=== PATIENT | female | born 1990 | race Caucasian/White ===

== ENCOUNTER 2018-04-14 18:06 | Emergency (ER) | payer BC, OTHER ==
[2018-04-14 18:17] VITALS: RESP 18
[2018-04-14] MEDS ORDERED: ACETAMINOPHEN TAB 500 MG TAB PO STA (18:29)
--- NOTE | 2018-04-14 18:38 | ED ---
General Adult HPI - General Chief complaint: Extremity Injury, Lower Stated complaint: left foot pain/swelling Time Seen by Provider: 04/14/18 18:22 Source: patient, RN notes reviewed Mode of arrival: ambulatory Limitations: no limitations - History of Present Illness Initial comments: Patient is a 27-year-old female who presents the emergency department with complaints of left foot pain since yesterday when she thinks she twisted it while walking. She reports that she injured it 6 months ago and broke it 10 years ago. She has been taking ibuprofen for pain. Patient denies any recent fever, chills, shortness of breath, chest pain, back pain, abdominal pain, nausea or vomiting, numbness or tingling, headaches or visual changes, or any other complaints. - Related Data Previous Rx's Medication Instructions Recorded Docusate [Colace] 100 mg PO BID #30 capsule 05/12/14 Hydrocodone/Acetaminophen [[place] 1 each PO Q4HR PRN #40 tab 05/12/14 5-325] Allergies Allergy/AdvReac Type Severity Reaction Status Date / Time Sulfa (Sulfonamide Allergy Unknown Verified 04/14/18 18:12 Antibiotics) Childhood Review of Systems ROS Statement: Those systems with pertinent positive or pertinent negative responses have been documented in the HPI. ROS Other: All systems not noted in ROS Statement are negative. Past Medical History Additional Past Medical History / Comment(s): UMBILICAL HERNIA History of Any Multi-Drug Resistant Organisms: None Reported Past Surgical History: Hernia Repair Past Anesthesia/Blood Transfusion Reactions: No Reported Reaction Past Psychological History: No Psychological Hx Reported Smoking Status: Never smoker Past Alcohol Use History: Occasional Past Drug Use History: None Reported General Exam Limitations: no limitations General appearance: alert, in no apparent distress Head exam: Present: atraumatic, normocephalic Eye exam: Present: normal appearance Respiratory exam: Present: normal lung sounds bilaterally Cardiovascular Exam: Present: regular rate, normal rhythm Extremities exam: Present: tenderness (Left foot.), normal capillary refill, other (DP and PT pulses palpable and strong bilaterally. Mild edema of left foot. Slight limitation of left foot inversion/eversion.) Neurological exam: Present: alert, oriented X3 Psychiatric exam: Present: normal affect, normal mood Skin exam: Present: intact, normal color Course Vital Signs 04/14/18 18:12 Temperature 97.7 F Pulse Rate 78 Respiratory 18 Rate Blood Pressure 134/84 O2 Sat by Pulse 100 Oximetry Medical Decision Making - Medical Decision Making Tylenol given for pain. Left foot X-ray is negative for fracture or dislocation. This is likely an ankle sprain. Patient does not want a splint. Clarence wrap was used for the ankle. Case discussed in detail with attending physician Dr. Hanna. Disposition Clinical Impression: Left ankle sprain Disposition: HOME SELF-CARE Condition: Good Instructions: Ankle Sprain (ED) Additional Instructions: Follow-up with PCP in 2 days. Rest, ice, compression and elevation for the injured ankle as discussed. Return to emergency department if symptoms worsen or any other concerns. Is patient prescribed a controlled substance at d/c from ED?: No Referrals: Chase Swann DO [Primary Care Provider] - 1-2 days Time of Disposition: 19:26
--- NOTE | 2018-04-14 19:10 | XR ---
EXAMINATION TYPE: XR foot complete LT DATE OF EXAM: 04/14/2018 COMPARISON: NONE HISTORY: Foot pain TECHNIQUE: 3 views FINDINGS: Metatarsals are intact. I see no fracture nor dislocation. There are no erosions. Joint spa andrés are normal. IMPRESSION: Negative left foot exam.
[2018-04-14 19:36] VITALS: BP 140/80; PULSE 88; TEMP 97.3
== END 2018-04-14 19:36 | disposition home or self-care (01) ==
LOC: EC 18:06
DX: S93.402A Sprain of unspecified ligament of left ankle, initial encounter (principal); Z88.2 Allergy status to sulfonamides; X50.1XXA Overexertion from prolonged static or awkward postures, initial encounter; Y93.01 Activity, walking, marching and hiking
CPT/HCPCS: 99283

== ENCOUNTER 2020-01-13 15:14 | Inpatient (IN) | payer BC ==
[2020-01-13 16:07] LABS: Creatinine,Urine Random 28.1 mg/dL
[2020-01-13 16:08] LABS: Protein/Creatinine Ratio,Urine 0.486
[2020-01-13 16:23] LABS: Appearance,Urine Clear (Clear); Bilirubin,Urine Negative (Negative); Blood,Urine Negative (Negative); Color,Urine Light Yellow; Glucose,Urine (UA) Negative (Negative); Ketones,Urine Negative (Negative); Leukocyte Esterase,Urine Negative (Negative); Nitrite,Urine Negative (Negative); PH, Urine 6.5 (5.0-8.0); Protein,Urine Negative (Negative); Specific Gravity,Urine 1.005 (1.001-1.035); Urobilinogen,Urine <2.0 mg/dL (<2.0)
[2020-01-13 16:52] LABS: Basophils # (A) 0.1 k/uL (0-0.2); Basophils % (A) 0 %; Eosinophils # (A) 0.4 k/uL (0-0.7); Eosinophils % (A) 3 %; HCT 34.9 % (34.0-46.0); HGB 11.8 gm/dL (11.4-16.0); Lymphocytes # (A) 2.3 k/uL (1.0-4.8); Lymphocytes % (A) 19 %; MCH 32.3 pg (25.0-35.0); MCHC 33.7 g/dL (31.0-37.0); MCV 95.9 fL (80.0-100.0); Monocytes # (A) 0.7 k/uL (0-1.0); Monocytes % (A) 5 %; Neutrophils # (A) 8.7 k/uL (1.3-7.7); Neutrophils % (A) 70 %; Platelet Count 164 k/uL (150-450); RBC 3.64 m/uL (3.80-5.40); RDW 13.7 % (11.5-15.5); WBC 12.3 k/uL (3.8-10.6)
[2020-01-13 16:55] LABS: ALT 17 U/L (4-34); AST 29 U/L (14-36); African American GFR (CKD) >90 (>60 ml/min/1.73 sqM); Blood Urea Nitrogen 10 mg/dL (7-17); LDH 420 U/L (313-618); Magnesium 1.7 mg/dL (1.6-2.3); Non-African American GFR(CKD) >90 (>60 ml/min/1.73 sqM); Uric Acid 5.6 mg/dL (3.7-7.4)
[2020-01-13 17:25] LABS: INR 0.9 (<1.2); Partial Thromboplastin Time 23.3 sec (22.0-30.0); Prothrombin Time 9.3 sec (9.0-12.0)
[2020-01-13] MEDS ORDERED: DINOPROSTONE 10 MG INSERT.ER VAGINAL ONE (18:38)
[2020-01-13] MEDS ORDERED: LABETALOL 200 MG TAB PO STA (18:38)
[2020-01-14] MEDS ORDERED: METHYLERGONOVINE 0.2 MG/ML 1 ML AMP IM PRN (06:15)
[2020-01-14] MEDS ORDERED: OXYTOCIN 10 UNIT/ML 1 ML VIAL IM PRN (06:15)
[2020-01-14] MEDS ORDERED: OXYTOCIN 30 UNITS/500 ML NS 30 UNIT in SALINE 1 500ML.BAG IV SCH (06:15)
[2020-01-14] MEDS ORDERED: TERBUTALINE 1 MG/ML VIAL SQ PRN (06:15)
[2020-01-14] MEDS ORDERED: CARBOPROST TROMETHAMINE 250 MCG/ML 1 ML AMP IM PRN (06:15)
[2020-01-14] MEDS ORDERED: LIDOCAINE 0.5% (PF) 5 MG/ML (50 ML SDV) SQ PRN (06:15)
[2020-01-14] MEDS: LACTATED RINGERS 1,000 ML IV SCH ×2 (06:21→11:51)
[2020-01-14] MEDS: LABETALOL 200 MG TAB PO SCH ×2 (08:02→18:45)
--- NOTE | 2020-01-14 10:35 | P.HPOB ---
History of Present Illness H&P Date: 01/13/20 Chief Complaint: pre-eclampsia at term 29-year-old presents at 38 weeks and 6 days after having her blood pressures in the office. Her blood pressure here went up to 160s over 80s. She did have a mild headache but that resolved. Preeclamptic labs were run and her PC ratio is 0.4. With the blood pressures on the PC ratio, she was diagnosed with preeclampsia and kept for induction of labor. Her cervix is closed, thick, -2 station. She is not annabel. heart tones 135 with moderate variability and reactive. Cervidil will be placed and then amniotomy and Pitocin the morning. Full discussion was had with the patient and the father of the baby. They express understanding of why she is to be delivered and the seriousness of the situation. Review of Systems All systems: negative Constitutional: Denies chills, Denies fever Eyes: denies blurred vision, denies pain Ears, nose, mouth and throat: Denies headache, Denies sore throat Cardiovascular: Denies chest pain, Denies shortness of breath Respiratory: Denies cough Gastrointestinal: Denies abdominal pain, Denies diarrhea, Denies nausea, Denies vomiting Genitourinary: Denies dysuria, Denies hematuria Musculoskeletal: Denies myalgias Integumentary: Denies pruritus, Denies rash Neurological: Denies numbness, Denies weakness Psychiatric: Denies anxiety, Denies depression Endocrine: Denies fatigue, Denies weight change Past Medical History Past Medical History: No Reported History Additional Past Medical History / Comment(s): UMBILICAL HERNIA. Obstetric history: This is her first and she's had care with Dr. Martin since 8 weeks gestation. Normal anatomy ultrasound at 18 weeks. Blood type is O-, rubella immune, RPR nonreactive, hepatitis B negative, HIV negative. Rogaine was given 10/26/2019. History of Any Multi-Drug Resistant Organisms: None Reported Past Surgical History: Hernia Repair Past Anesthesia/Blood Transfusion Reactions: No Reported Reaction Past Psychological History: No Psychological Hx Reported Smoking Status: Never smoker Past Alcohol Use History: Occasional Past Drug Use History: None Reported - Past Family History Father Family Medical History: No Reported History Medications and Allergies Allergies Allergy/AdvReac Type Severity Reaction Status Date / Time Sulfa (Sulfonamide Allergy Unknown Verified 01/13/20 15:22 Antibiotics) Childhood Exam Osteopathic Statement: *. No significant issues noted on an osteopathic structural exam other than those noted in the History and Physical/Consult. Vital Signs Temp Pulse Resp BP Pulse Ox 01/14/20 03:00 16 135/70 01/14/20 02:00 72 125/64 01/13/20 23:00 98.1 F 76 16 130/62 01/13/20 21:00 78 137/71 01/13/20 20:00 71 128/73 01/13/20 19:00 70 16 178/88 01/13/20 15:35 98.0 F 77 16 191/88 98 Intake and Output 01/13/20 01/14/20 01/14/20 22:59 06:59 14:59 Other: # Voids 3 1 Weight 66.224 kg Heart: Regular rate and rhythm Lungs: Clear to auscultation bilaterally Abdomen: Soft, nontender Extremities: Negative Homans sign 3+ out of 4 DTR Results Result Diagrams: 01/13/20 16:33 01/13/20 16:33 Abnormal Lab Results - Last 24 Hours (Table) 01/13/20 01/13/20 Range/Units 15:59 16:33 WBC 12.3 H (3.8-10.6) k/uL RBC 3.64 L (3.80-5.40) m/uL Neutrophils # 8.7 H (1.3-7.7) k/uL U Random Total Protein 14 H (<12) mg/dL Assessment and Plan (1) Preeclampsia Current Visit: Yes Status: Acute Code(s): O14.90 - UNSPECIFIED PRE- ECLAMPSIA, UNSPECIFIED TRIMESTER SNOMED Code(s): 771424159 Plan: 1. 2-stage induction of labor with Cervidil tonight and then amniotomy and Pitocin in the morning. 2. Monitor blood pressures closely. 3. Anticipate normal vaginal delivery
[2020-01-14] MEDS ORDERED: ROPIVACAINE 5MG/ML 20ML VIAL ONE (11:28)
[2020-01-14] MEDS ORDERED: SODIUM CHLORIDE 0.9% 100 ML BAG ONE (11:28)
[2020-01-14] MEDS ORDERED: fentaNYL (PF) 50 MCG/ML 5 ML AMP ONE (11:28)
[2020-01-14] MEDS ORDERED: ACETAMINOPHEN TAB 325 MG TAB PO STA (18:39)
--- NOTE | 2020-01-14 23:32 | P.PROBDLV ---
Vaginal Delivery Note - . Vaginal Delivery Note: 29-year-old presents at 38 weeks and 6 days after having her blood pressures in the office. Her blood pressure here went up to 160s over 80s. She did have a mild headache but that resolved. Preeclamptic labs were run and her PC ratio is 0.4. With the blood pressures on the PC ratio, she was diagnosed with preeclampsia and kept for induction of labor. Her cervix is closed, thick, -2 station. She is not annabel. heart tones 135 with moderate jh iability and reactive. Cervidil was placed and in the morning her cervix was 1 cm dilated, 70% effaced, -2 station. Amniotomy was performed at 8:46 AM clear fluid noted. Pitocin had also been started. She progressed slowly throughout the day and did get an epidural when she was uncomfortable. Her cervix was completely dilated at 2211. She pushed, and delivered a viable male over intact perineum under epidural anesthesia at 2312. Head delivered ARIADNA, anterior shoulder delivered gentle downward guidance of a posterior shoulder and rest of body. Nose and mouth bulb suctioned, cord clamped and cut, infant placed mother's abdomen. Apgars 9, 9, weight 6 lbs. 3 oz. Placenta delivered spontaneously, intact with three-vessel cord at 2315. Vagina, cervix, and perineum were inspected. First-degree midline and a right labial laceration were repaired with 3-0 Vicryl. Estimated blood loss 100 mL. Mother and baby in stable condition.
[2020-01-14] MEDS ORDERED: Rhogam IMMUNE GLOBULIN 1,500 UNIT/1 ML IM ONE (23:33)
[2020-01-14] MEDS ORDERED: diphenhydrAMINE 25 MG CAP PO PRN (23:33)
[2020-01-14] MEDS ORDERED: HYDROCORTISONE 2.5% RECTAL CREAM 30 GM TUBE RECTAL PRN (23:33)
[2020-01-14] MEDS ORDERED: diphenhydrAMINE 50 MG/ML 1 ML VIAL IVP PRN ×2 (23:33)
[2020-01-14] MEDS ORDERED: ACETAMINOPHEN TAB 325 MG TAB PO PRN (23:33)
[2020-01-14] MEDS ORDERED: SIMETHICONE 80 MG CHEWABLE PO PRN (23:33)
[2020-01-14] MEDS ORDERED: LANOLIN CREAM 5 GM TUBE TOPICAL PRN (23:33)
[2020-01-14] MEDS ORDERED: ZOLPIDEM 5 MG TAB PO PRN (23:33)
[2020-01-14] MEDS ORDERED: BENZOCAINE/MENTHOL SPRAY 1 GM/SPRAY AEROSOL TOPICAL PRN (23:33)
[2020-01-14] MEDS ORDERED: diphenhydrAMINE 50 MG CAP PO PRN (23:33)
[2020-01-14] MEDS ORDERED: OXYTOCIN 20 UNITS/1000 ML NS 1,000 ML IV SCH (23:45)
[2020-01-15] MEDS: LACTATED RINGERS 1,000 ML IV SCH ×3 (00:48→20:05)
[2020-01-15] MEDS ORDERED: MAGNESIUM SULFATE-WATER PMX 4 GM in WATER FOR INJECTION 1 100ML.BAG IVPB ONE (02:10)
[2020-01-15] MEDS ORDERED: CALCIUM GLUCONATE 1 GM/10 ML VIAL IV PRN (02:10)
[2020-01-15] MEDS: IBUPROFEN 600 MG TAB PO PRN ×2 (02:24→20:06)
[2020-01-15] MEDS: MAGNESIUM SULFATE-WATER PMX 20 GM in WATER FOR INJECTION 1 500ML.BAG IV SCH ×3 (02:45→21:57)
--- NOTE | 2020-01-15 07:07 | P.PNOBGVD ---
Subjective - Subjective Principal diagnosis: Status post normal vaginal delivery day #1, preeclampsia Interval history: Patient seen and examined day #1. After her recovery was done from her delivery she was placed on magnesium sulfate for seizure prophylaxis. She denies headache, vision changes, nausea, vomiting, chest pain, shortness of breath or any calf pain. Patient reports: Reports appetite normal, Reports voiding normally, Reports pain well controlled, Reports ambulating normally [place]: doing well Objective - Latest Vital Signs Latest vital signs: Vital Signs Temp Pulse Resp BP 01/15/20 06:30 97.1 F L 96 16 148/63 01/15/20 05:30 97.3 F L 89 16 136/78 01/15/20 04:30 98.5 F 78 14 132/77 01/15/20 03:30 97.1 F L 89 16 154/75 01/15/20 03:15 97.7 F 71 16 157/74 01/15/20 02:59 97.5 F L 87 16 127/77 01/15/20 02:45 97.2 F L 88 16 134/77 01/15/20 02:28 96.8 F L 71 16 169/86 01/15/20 01:30 98.1 F 62 16 175/83 01/15/20 01:00 60 16 174/91 01/15/20 00:30 66 16 167/90 01/15/20 00:15 66 16 150/72 01/15/20 00:00 68 16 156/80 01/14/20 23:45 78 16 152/78 01/14/20 23:30 97.2 F L 96 16 148/70 Intake and Output 01/14/20 01/15/20 01/15/20 22:59 06:59 14:59 Intake Total 200 Output Total 1100 600 Balance -1100 -400 Intake: Oral 200 Output: Urine 1100 500 Straight 900 Estimated Blood Loss 100 - Exam Lungs: bilateral: normal Chest: Normal S1, Normal S2 Extremities: Present: normal, other (2+/4 DTR) Abdomen: Present: normal appearance, soft Uterus: Present: normal, firm - Labs Labs: Abnormal Lab Results - Last 24 Hours (Table) 01/15/20 Range/Units 02:44 Magnesium 5.6 H* (1.6-2.3) mg/dL Assessment and Plan (1) Preeclampsia Current Visit: Yes Status: Acute Code(s): O14.90 - UNSPECIFIED PRE- ECLAMPSIA, UNSPECIFIED TRIMESTER SNOMED Code(s): 141933932 (2) Normal vaginal delivery Current Visit: Yes Status: Acute Code(s): O80 - ENCOUNTER FOR FULL-TERM UNCOMPLICATED DELIVERY SNOMED Code(s): 64116149 Plan: 1. Continue magnesium sulfate until 24 hours after delivery. 2. Will give oral labetalol if necessary 3. Monitor closely 4. care
[2020-01-15 07:11] LABS: Basophils % (A) 0 %; Eosinophils % (A) 0 %; Lymphocytes # (A) 1.4 k/uL (1.0-4.8); Lymphocytes % (A) 6 %; MCH 32.1 pg (25.0-35.0); MCHC 33.4 g/dL (31.0-37.0); Monocytes # (A) 1.2 k/uL (0-1.0); Monocytes % (A) 5 %; Neutrophils # (A) 21.6 k/uL (1.3-7.7); Neutrophils % (A) 88 %; Platelet Count 167 k/uL (150-450); RBC 3.44 m/uL (3.80-5.40); RDW 14.1 % (11.5-15.5); WBC 24.4 k/uL (3.8-10.6)
[2020-01-15] MEDS: LABETALOL 200 MG TAB PO SCH ×2 (09:05→20:06)
[2020-01-15] MEDS: SENNOSIDES-DOCUSATE SODIUM 1 EACH TAB PO SCH ×2 (10:08→20:06)
--- NOTE | 2020-01-16 06:06 | P.PNOBGVD ---
Subjective - Subjective Patient reports: Reports appetite normal, Reports voiding normally, Reports pain well controlled, Reports ambulating normally [place]: doing well Objective - Latest Vital Signs Latest vital signs: Vital Signs Temp Pulse Resp BP Pulse Ox 01/16/20 04:00 97.0 F L 69 16 110/63 01/16/20 02:00 97.8 F 71 18 129/80 01/16/20 01:00 96.8 F L 73 16 120/56 01/16/20 00:00 97.9 F 78 16 129/71 01/15/20 23:00 74 16 116/68 01/15/20 22:00 98.3 F 82 18 131/74 01/15/20 21:00 98.3 F 86 16 148/94 01/15/20 20:00 99.0 F 86 16 147/89 01/15/20 19:00 98.9 F 86 16 149/95 01/15/20 18:00 97.6 F 83 16 146/88 98 01/15/20 17:00 98.7 F 86 16 121/75 96 01/15/20 15:59 98.0 F 87 18 130/67 97 01/15/20 15:00 98.1 F 82 16 143/78 97 01/15/20 14:00 98.4 F 84 18 132/76 98 01/15/20 13:00 98.0 F 78 16 136/84 97 01/15/20 12:00 97.7 F 79 18 140/79 01/15/20 11:00 85 18 137/88 01/15/20 10:00 97.9 F 93 18 130/77 01/15/20 09:00 98.0 F 84 18 124/72 97 01/15/20 08:00 82 18 134/81 01/15/20 07:30 97.5 F L 85 18 141/79 01/15/20 06:30 97.1 F L 96 16 148/63 Intake and Output 01/15/20 01/15/20 01/16/20 14:59 22:59 06:59 Intake Total 6835.984 8819.167 900 Output Total 1550 1900 1000 Balance 325.833 -415.833 -100 Intake: Intake, IV Titration 8470.385 8131.167 300 Amount Lactated Ringers 1,000 ml 400 400 150 @ 50 mls/hr IV .Q20H [facility] Rx#:[id number] Magnesium Sulfate-Water 475.833 484.167 Pmx 20 gm In Water For Injection 1 500ml.bag @ 2 GM/HR 50 mls/hr IV .Q10H [facility] Rx#:[id number] Magnesium Sulfate-Water 400 400 150 Pmx 4 gm In Water For Injection 1 100ml.bag @ 300 mls/hr IVPB ONCE ONE Rx#:[id number] Oral 600 200 600 Output: Urine 1550 1900 1000 Other: # Voids 1 1 - Exam Lungs: bilateral: normal Chest: Normal S1, Normal S2 Extremities: Present: normal Abdomen: Present: normal appearance, soft Uterus: Present: normal, firm - Labs Labs: Abnormal Lab Results - Last 24 Hours (Table) 01/15/20 Range/Units 06:45 WBC 24.4 H (3.8-10.6) k/uL RBC 3.44 L (3.80-5.40) m/uL Hgb 11.0 L (11.4-16.0) gm/dL Hct 33.0 L (34.0-46.0) % Neutrophils # 21.6 H (1.3-7.7) k/uL Monocytes # 1.2 H (0-1.0) k/uL Assessment and Plan Assessment: Patient is resting today without new complaints. Magnesium was discontinued at approximately 2:00 this morning. Blood pressures remain good on oral labetalol. Plan today is to continue routine care and also continue observation for hypertensive issues. If she continues to well we discussed possible discharge home tomorrow. (1) Normal vaginal delivery Current Visit: Yes Status: Acute Code(s): O80 - ENCOUNTER FOR FULL-TERM UNCOMPLICATED DELIVERY SNOMED Code(s): 23181581 (2) Preeclampsia Current Visit: Yes Status: Acute Code(s): O14.90 - UNSPECIFIED PRE- ECLAMPSIA, UNSPECIFIED TRIMESTER SNOMED Code(s): 628875205
--- NOTE | 2020-01-16 07:48 | P.MSEPDOC ---
Presenting Problems - Arrival Data Date of Arrival on Unit: 01/13/20 Time of Arrival on Unit: 15:10 Mode of Transport: Ambulatory - Complaint OB-Reason for Admission/Chief Complaint: PIH Medical History - Information : 1 Para: 0 Number of Living Children: 0 - Gestational Age Gestational Age by JONELLE (wks/days): 38 Weeks and 6 Days Review of Systems - Review of Systems Constitutional: No problems Breast: No problems ENT: No problems Cardiovascular: No problems Respiratory: No problems Gastrointestinal: No problems Genitourinary: No problems Musculoskeletal: No problems Neurological: No problems Skin: No problems Vital Signs - Temperature Temperature: 97.7 F Temperature Source: Oral - Pulse Right Sitting Brachial Pulse Rate: 71 Pulse Assessment Method: Automatic Cuff - Respirations Respiratory Rate: 14 Oxygen Delivery Method: Room Air O2 Sat by Pulse Oximetry: 97 - Blood Pressure Right Arm Sitting Blood Pressure: 132/74 Blood Pressure Mean: 93 Blood Pressure Source: Automatic Cuff Medical Screen Scoring (Pre) - Cervical Exam Dilation: 0 cm = 0 Membranes: Intact - Uterine Contractions Frequency: N/A Duration: N/A Intensity: N/A - Maternal Vital Signs Maternal Temperature: N/A Maternal Blood Pressure: Systolic >139 = 2 Signs of Preeclampsia: Headache = 1 Maternal Respirations: N/A - Maternal Trauma Maternal Trauma: N/A - Assessment - Baby A Baseline FHR: 140 Heart Rate - NICHD Category: Category I (Normal) = 0 NST: Reactive Position: N/A Station: N/A - Total Score - Baby A Total Score - Baby A: 3 - Total Score - Baby B Total Score - Baby B: 3 - Total Score - Baby C Total Score - Baby C: 3 - Level of Risk - Baby A Level of Risk - Baby A: Low (0-5) - Level of Risk - Baby B Level of Risk - Baby B: Low (0-5) - Level of Risk - Baby C Level of Risk - Baby C: Low (0-5) Physician Notification (Pre) - Physician Notified Physician/Practitioner Notifed:: Dr. Underwood New Order Received: Yes - Notification Comment Comment: Called Dr. Underwood to give report on blood pressure and patient's symptoms on arrival blood pressure elevated 149/95 and patient experiencing intermittent blurred vision at this time. Denies other symtoms, reflexes 2+, clonus absent, denies headache. Physician states to give evening dose of labetolol now since morning dose was held. Magnesium to be discontinued at 0225 per physician and at that point okay to perform vitals every 2 hours until morning or until Dr. Martin assesses patient in the am. Call physician with further needs. Disposition - Disposition OB Disposition: Admit, LDRP Suite I agree with the RN Medical Screening Exam: Yes Risk & Benefit of care provided described in d/c instruction: Yes Diagnosis: UNSPECIFIED PRE-ECLAMPSIA, THIRD TRIMESTER
[2020-01-16] MEDS: LABETALOL 200 MG TAB PO SCH (08:56)
[2020-01-16] MEDS: SENNOSIDES-DOCUSATE SODIUM 1 EACH TAB PO SCH ×2 (09:46→21:22)
[2020-01-16] MEDS: IBUPROFEN 600 MG TAB PO PRN (12:50)
--- NOTE | 2020-01-16 18:36 | P.PN ---
Progress Note - Text Progress Note Date: 01/16/20 Patient is seen again and evaluated. She's had some elevated blood pressures throughout the day occasionally diastolics over 90 and systolics over 150. Her magnesium has been discontinued and she actually states that she is feeling much better and her headache has gone away. She's currently on labetalol 200 mg by mouth twice a day. I plan to increase her labetalol to 300 mg twice a day. Going to repeat a CBC tomorrow because her white count was elevated today. She understands that if her blood pressures continue to be a problem she may need to be continued in-house observation for blood pressure management.
[2020-01-16] MEDS: LABETALOL 100 MG TAB PO SCH (21:01)
[2020-01-17 06:12] LABS: Basophils % (A) 0 %; Eosinophils # (A) 0.3 k/uL (0-0.7); Eosinophils % (A) 2 %; HCT 32.2 % (34.0-46.0); HGB 10.6 gm/dL (11.4-16.0); Lymphocytes # (A) 2.3 k/uL (1.0-4.8); Lymphocytes % (A) 14 %; MCH 31.9 pg (25.0-35.0); MCHC 32.8 g/dL (31.0-37.0); Mean Platelet Volume 9.4; Monocytes # (A) 0.7 k/uL (0-1.0); Monocytes % (A) 4 %; Neutrophils # (A) 12.8 k/uL (1.3-7.7); Neutrophils % (A) 78 %; Platelet Count 181 k/uL (150-450); RBC 3.32 m/uL (3.80-5.40); WBC 16.4 k/uL (3.8-10.6)
--- NOTE | 2020-01-17 06:28 | P.PNOBGVD ---
Subjective - Subjective Patient reports: Reports appetite normal, Reports voiding normally, Reports pain well controlled, Reports ambulating normally [place]: doing well Objective - Latest Vital Signs Latest vital signs: Vital Signs Temp Pulse Resp BP Pulse Ox 01/17/20 04:00 98.6 F 72 14 162/82 01/17/20 00:00 97.9 F 67 16 168/78 01/16/20 20:00 98.1 F 69 16 161/79 01/16/20 18:00 98.6 F 63 16 165/81 96 01/16/20 16:00 99.1 F 64 16 157/73 98 01/16/20 12:00 99.1 F 69 16 141/97 98 01/16/20 08:57 98.2 F 74 16 166/76 97 01/16/20 07:48 97.7 F 71 14 132/74 97 Intake and Output 01/16/20 01/16/20 01/17/20 14:59 22:59 06:59 Output Total 300 Balance -300 Output: Urine 300 Other: # Voids 1 1 # Bowel Movements 1 - Exam Lungs: bilateral: normal Chest: Normal S1, Normal S2 Extremities: Present: normal Abdomen: Present: normal appearance, soft Uterus: Present: normal, firm - Labs Labs: Abnormal Lab Results - Last 24 Hours (Table) 01/17/20 Range/Units 05:54 WBC 16.4 H (3.8-10.6) k/uL RBC 3.32 L (3.80-5.40) m/uL Hgb 10.6 L (11.4-16.0) gm/dL Hct 32.2 L (34.0-46.0) % Neutrophils # 12.8 H (1.3-7.7) k/uL Assessment and Plan Assessment: day #3. Patient is resting without new complaints and actually feels well. Unfortunately her blood pressure remains elevated despite increasing her labetalol to 300 mg by mouth twice a day. Her systolic blood pressures persistently 160 or higher. Patient denies headache and in general is feeling well. She is having normal lochia. I discussed further management of her hypertension at this time and going to add in some Procardia and also get a consultation with cardiology for persistent hypertension that I am unable to completely control. She is agreeable to this plan. Hopefully if we can get her blood pressure better and cardiology feels for evaluation is okay maybe go home tomorrow. (1) Normal vaginal delivery Current Visit: Yes Status: Acute Code(s): O80 - ENCOUNTER FOR FULL-TERM UNCOMPLICATED DELIVERY SNOMED Code(s): 82835063 (2) Preeclampsia Current Visit: Yes Status: Acute Code(s): O14.90 - UNSPECIFIED PRE- ECLAMPSIA, UNSPECIFIED TRIMESTER SNOMED Code(s): 529171372
[2020-01-17] MEDS ORDERED: diphenhydrAMINE 50 MG/ML 1 ML VIAL IVP PRN (08:35)
[2020-01-17] MEDS ORDERED: NIFEdipine XL 30 MG TAB.ER.24 PO SCH (09:00)
[2020-01-17] MEDS: LABETALOL 100 MG TAB PO SCH ×2 (09:30→21:03)
[2020-01-17] MEDS: SENNOSIDES-DOCUSATE SODIUM 1 EACH TAB PO SCH ×2 (09:31→22:41)
--- NOTE | 2020-01-17 13:00 | CONS ---
CONSULTATION Mrs. Levine is a 29-year-old female who delivered a healthy baby and was noted to have an episode of hypertension. Cardiology consultation was requested because of that. The patient's blood pressure started to become elevated prior to her admission and she had evidence of some peripheral edema. Up to that time, she has done well. She has been active physically, walking without difficulty. She has no prior history of cardiac disease. She has no history of PND or orthopnea. She is not short of breath. She has no palpitation. She was started on labetalol that was increased, but her blood pressure remained elevated and nifedipine was added to her regimen. She is feeling well this morning and her edema is better. Prior to the her , she has been active without any limitation. She has no prior history of hypertension, no history of diabetes. She is a nonsmoker. She is at this time on labetalol 300 mg twice a day and nifedipine 30 mg daily. REVIEW OF SYSTEMS: RESPIRATORY SYSTEM: She has no documented history of asthma or emphysema. No cough. GI SYSTEM: No recent GI bleeding, no peptic ulcer disease. SYSTEM: No dysuria or hematuria. NERVOUS SYSTEM: No history of seizure. PHYSICAL EXAMINATION: A 29-year-old female, alert, oriented, in no apparent distress. Blood pressure running in the 140s to 170s with a heart rate in the 70s. Afebrile. HEAD: Normocephalic. EYES: Sclerae nonicteric. NECK: Good upstroke, no bruit, no venous distention. LUNGS: Clear to auscultation. HEART: Regular rate and rhythm, S1, S2. No S3 with systolic murmur heard at the base, 2.6, no diastolic murmur, no rub. ABDOMEN: Soft, positive bowel sounds. EXTREMITIES: No edema noted. LAB DATA: Revealed hemoglobin of 10.6 on 01/12. Her BUN and creatinine were 10 and 0.6, her magnesium was 1.7 and subsequently up to 5.6 after receiving magnesium intravenously. IMPRESSION: 1. Preeclampsia with elevated blood pressure. 2. Status post normal vaginal delivery. RECOMMENDATION: I agree with your plan of adding the nifedipine. I will increase that 60 mg daily. I will obtain echocardiogram with Doppler to rule out any evidence of cardiomyopathy. Will recheck her renal function. Depending on the trend of her blood pressure, further recommendation will be made. Of note, the patient is . Thank you for this consult. Will follow with you. MMODL / IJN: [id number] /
[2020-01-17] MEDS ORDERED: NIFEdipine XL 30 MG TAB.ER.24 PO ONE (13:30)
[2020-01-17 20:31] VITALS: RESP 16
[2020-01-18 00:42] VITALS: TEMP 98.1
--- NOTE | 2020-01-18 06:04 | P.PNOBGVD ---
Subjective - Subjective Patient reports: Reports appetite normal, Reports voiding normally, Reports pain well controlled, Reports ambulating normally : doing well Objective - Latest Vital Signs Latest vital signs: Vital Signs Temp Pulse Resp BP Pulse Ox 01/18/20 00:00 98.1 F 61 16 128/69 99 01/17/20 20:00 98.2 F 67 16 167/85 01/17/20 16:00 98.8 F 65 14 138/78 01/17/20 09:00 98.1 F 70 16 174/81 - Exam Lungs: bilateral: normal Chest: Normal S1, Normal S2 Extremities: Present: normal Abdomen: Present: normal appearance, soft Uterus: Present: normal, firm - Labs Labs: Abnormal Lab Results - Last 24 Hours (Table) 01/17/20 Range/Units 05:54 WBC 16.4 H (3.8-10.6) k/uL RBC 3.32 L (3.80-5.40) m/uL Hgb 10.6 L (11.4-16.0) gm/dL Hct 32.2 L (34.0-46.0) % Neutrophils # 12.8 H (1.3-7.7) k/uL Assessment and Plan Assessment: Post day #4. Patient's still feeling well without new complaints. She did have a couple elevated blood pressures yesterday however most recent blood pressure was 128/69. Patient was seen by cardiology and this consultation is appreciated. They increased her Procardia to 60 XL and she did get a cardiac echo which is pending. I discussed with her that if her blood pressures continue to remain well and she is feeling good and the echo was normal we could consider home today after lunch time. This of course would be if it was okay with cardiology. Plan today is to continue routine care. Continue to watch her blood pressures and as above consider discharge home later today with close follow-up. (1) Normal vaginal delivery Current Visit: Yes Status: Acute Code(s): O80 - ENCOUNTER FOR FULL-TERM UNCOMPLICATED DELIVERY SNOMED Code(s): 75702179 (2) Preeclampsia Current Visit: Yes Status: Acute Code(s): O14.90 - UNSPECIFIED PRE- ECLAMPSIA, UNSPECIFIED TRIMESTER SNOMED Code(s): 744251135
[2020-01-18 07:55] VITALS: BP 145/80; PULSE 63
[2020-01-18] MEDS: SENNOSIDES-DOCUSATE SODIUM 1 EACH TAB PO SCH (07:56)
[2020-01-18] MEDS: LABETALOL 100 MG TAB PO SCH (08:56)
--- NOTE | 2020-01-18 09:54 | ECHOF ---
Referral Reason:htn MEASUREMENTS -------- HEIGHT: 152.4 cm WEIGHT: 66.2 kg BP: RVIDd: 3.2 cm (< 3.3) IVSd: 1.1 cm (0.6 - 1.1) LVIDd: 4.3 cm (3.9 - 5.3) LVPWd: 1.2 cm (0.6 - 1.1) IVSs: 1.4 cm LVIDs: 2.8 cm LVPWs: 1.4 cm LA Diam: 4.3 cm (2.7 - 3.8) LAESV Index (A-L): 30.62 ml/m Ao Diam: 3.1 cm (2.0 - 3.7) AV Cusp: 1.9 cm (1.5 - 2.6) MV EXCURSION: 21.518 mm (> 18.000) MV EF SLOPE: 148 mm/s (70 - 150) EPSS: 0.3 cm MV E Kam: 1.36 m/s MV DecT: 123 ms MV A Kam: 0.45 m/s MV E/A Ratio: 3.04 RAP: 5.00 mmHg RVSP: 16.77 mmHg FINDINGS -------- Sinus rhythm. This was a technically good study. LV size, wall thickness and systolic function are normal, with an EF greater than 55%. The left noemí tricular size is normal. The diastolic filling pattern is normal for the age of the patient 17.42. The right ventricle is normal in size. LA is midly dilated 29-33ml/m2. The right atrial size is normal. The aortic valve is trileaflet, and appears structurally normal. No aortic stenosis or regurgitation. The mitral valve is normal. Mild mitral regurgitation is present. The tricuspid valve appears structurally normal. Trace tricuspid regurgitation present. Right noemí tricular systolic pressure is normal at < 35 mmHg. There is no pulmonic regurgitation present. The aortic root size is normal. There is a small, generalized pericardial effusion present. CONCLUSIONS -------- 1. LV size, wall thickness and systolic function are normal, with an EF greater than 55%. 2. LA is midly dilated 29-33ml/m2. 3. The aortic valve is trileaflet, and appears structurally normal. No aortic stenosis or regurgitati on. 4. Mild mitral regurgitation is present. 5. Trace tricuspid regurgitation present. 6. There is a small, generalized pericardial effusion present. AUTOMOTIVE MANAGER: Shavon Mclean RDCS
--- NOTE | 2020-01-18 14:59 | PN ---
PROGRESS NOTE Mrs. Levine is a 29-year-old female who delivered a healthy baby and had preeclampsia. She is feeling well today. Her breathing is stable. She is denying any chest pain. No dizziness. No palpitation. Her blood pressure is under better control. She continued to be on labetalol 300 mg twice a day and nifedipine XL 60 mg daily. PHYSICAL EXAMINATION: Blood pressure running in the 120s/60 with a heart rate in the 60s. LUNGS: Clear. HEART: Regular rate and rhythm, S1, S2. No S3 with systolic murmur. ABDOMEN: Soft. EXTREMITIES: No edema. LAB DATA: Echocardiogram revealed a preserved ventricular size and systolic function with no segmental wall motion abnormality. IMPRESSION: 1. Preeclampsia. 2. Hypertension. RECOMMENDATION: Patient should be able to be discharged home on her present medical therapy and depending on her blood pressure trend, further recommendation will be made. MMODL / IJN: [id number] /
--- NOTE | 2020-01-20 06:37 | P.DS ---
Providers Date of admission: 01/13/20 15:40 Expected date of discharge: 01/18/20 Attending physician: Kaushik Martin Consults: 01/17/20 06:28 Consult Physician Urgent Consulting Provider: Lopez Obregon Consult Reason/Comments: Persistent hypertension/pre-eclampsia /HTN management. Do you want consulting provider notified?: Yes, Notify in am Primary care physician: Kaushik Martin - Discharge Diagnosis(es) (1) Normal vaginal delivery Status: Acute (2) Preeclampsia Status: Acute Hospital Course: Please see dictated H&P by Dr. Underwood for this patient's admission. Brief summary this is a pleasant 29-year-old no apparent patient who is admitted from the office with hypertension. Patient has a Cervidil placed and subsequent goes on to have a vaginal delivery viable male infant. Please see dictated delivery note. the patient did have continued blood pressure elevations and initially was placed on labetalol 200 twice a day and then increased to 300 twice a day. She continued to have hypertension problems and therefore I added Procardia and counseled to cardiology. A heart echo was done which was normal. Patient's blood pressures did respond to the Procardia and was discharged home follow up with me in 1 week for a blood pressure check. Procedures: Two-stage induction of labor and normal vaginal delivery Patient Condition at Discharge: Good Plan - Discharge Summary New Discharge Prescriptions: New Ibuprofen [Motrin] 600 mg PO Q6HR PRN #40 tab PRN Reason: Mild Pain Or Fever >= 100.5 NIFEdipine XL [Procardia XL] 60 mg PO DAILY #30 tab.er.24 Labetalol [Trandate] 300 mg PO BID #60 tab Discharge Medication List Ibuprofen [Motrin] 600 mg PO Q6HR PRN #40 tab 01/18/20 [Rx] Labetalol [Trandate] 300 mg PO BID #60 tab 01/18/20 [Rx] NIFEdipine XL [Procardia XL] 60 mg PO DAILY #30 tab.er.24 01/18/20 [Rx] Follow up Appointment(s)/Referral(s): Kaushik Martin MD [Primary Care Provider] - 01/24/20 1:30 pm (Please see me on Thursday for a blood pressure check.) Patient Instructions/Handouts: Preeclampsia During (DC), Vaginal Delivery (DC) Activity/Diet/Wound Care/Special Instructions: No intercourse or anything per vagina for 6 weeks. Please call if any fever, chills, excessive vaginal bleeding, and/or abdominal pain. Discharge Disposition: HOME SELF-CARE
== END 2020-01-18 14:05 | disposition home or self-care (01) | DRG 807 ==
LOC: FBPOP 15:14 → 4FBP 15:40
PROVIDERS: ADMIT Obstetrics & Gynecology; ATTEND Obstetrics & Gynecology
DX: O11.4 Pre-existing hypertension with pre-eclampsia, complicating childbirth (principal); Z37.0 Single live birth; O70.0 First degree perineal laceration during delivery; Z3A.38 38 weeks gestation of pregnancy; Z98.890 Other specified postprocedural states; Z88.2 Allergy status to sulfonamides
CPT/HCPCS: 59025; 81003; 82565; 82570; 83615; 83735; 84156; 84450; 84460; 84520; 84550; 85025; 85384; 85461; 85610; 85730; 86850; 86900; 86901; 88307; 93306; 99215

== ENCOUNTER → 2023-05-16 | Outpatient (CLI) | payer BC | END | disposition home or self-care (01) | LOC: LABWHC1 08:52 | PROVIDERS: ATTEND Obstetrics & Gynecology | DX: Z00.01 Encounter for general adult medical examination with abnormal findings (principal); N97.0 Female infertility associated with anovulation | CPT/HCPCS: 36415; 84144 ==

== ENCOUNTER 2024-05-04 05:52 | Inpatient (IN) | payer BC ==
[2024-05-04] MEDS ORDERED: CARBOPROST TROMETHAMINE 250 MCG/ML 1 ML AMP IM PRN (06:09)
[2024-05-04] MEDS ORDERED: METHYLERGONOVINE 0.2 MG/ML 1 ML AMP IM PRN (06:09)
[2024-05-04] MEDS ORDERED: TERBUTALINE 1 MG/ML VIAL SQ PRN (06:09)
[2024-05-04] MEDS ORDERED: OXYTOCIN 10 UNIT/ML 1 ML VIAL IM PRN (06:09)
[2024-05-04] MEDS ORDERED: miSOPROStoL 200 MCG TAB PO PRN (06:09)
[2024-05-04] MEDS ORDERED: TRANEXAMIC 1,000 MG/100ML-NACL 1,000 MG in EMPTY BAG 1 BAG IV PRN (06:09)
[2024-05-04] MEDS ORDERED: miSOPROStoL 200 MCG TAB RECTAL PRN (06:09)
[2024-05-04] MEDS ORDERED: LIDOCAINE 0.5% (PF) 5 MG/ML (50 ML SDV) SQ PRN (06:09)
[2024-05-04 06:16] VITALS: RESP 16
[2024-05-04] MEDS: LACTATED RINGERS 1,000 ML IV SCH (06:22)
[2024-05-04 06:25] LABS: Basophils % (A) 0 %; Eosinophils # (A) 0.2 k/uL (0-0.7); Eosinophils % (A) 2 %; HCT 33.9 % (34.0-46.0); HGB 11.8 gm/dL (11.4-16.0); Lymphocytes # (A) 2.3 k/uL (1.0-4.8); Lymphocytes % (A) 23 %; MCH 32.9 pg (25.0-35.0); MCHC 34.8 g/dL (31.0-37.0); MCV 94.8 fL (80.0-100.0); Mean Platelet Volume 9.3; Monocytes # (A) 0.5 k/uL (0-1.0); Monocytes % (A) 5 %; Neutrophils # (A) 6.7 k/uL (1.3-7.7); Neutrophils % (A) 68 %; Platelet Count 218 k/uL (150-450); RBC 3.58 m/uL (3.80-5.40); RDW 14.2 % (11.5-15.5); WBC 9.8 k/uL (3.8-10.6)
[2024-05-04] MEDS: OXYTOCIN 30 UNITS/500 ML NS 30 UNIT in SALINE 1 500ML.BAG IV SCH (06:28)
[2024-05-04] MEDS: ACETAMINOPHEN TAB 500 MG TAB PO STA (08:32)
[2024-05-04] MEDS ORDERED: SODIUM CHLORIDE 0.9% 250 ML BAG ONE (10:50)
[2024-05-04] MEDS ORDERED: ROPIVACAINE 5 MG/ML 30 ML VIAL ONE (10:50)
[2024-05-04] MEDS ORDERED: fentaNYL (PF) 50 MCG/ML 5 ML AMP ONE (10:50)
[2024-05-04] MEDS ORDERED: BENZOCAINE/MENTHOL SPRAY 1 GM/SPRAY AEROSOL TOPICAL PRN (12:47)
[2024-05-04] MEDS ORDERED: HYDROCORTISONE 2.5% RECTAL CREAM 30 GM TUBE RECTAL PRN (12:47)
[2024-05-04] MEDS ORDERED: SIMETHICONE 80 MG CHEWABLE PO PRN (12:47)
[2024-05-04] MEDS ORDERED: diphenhydrAMINE 50 MG/ML 1 ML VIAL IVP PRN ×2 (12:47)
[2024-05-04] MEDS ORDERED: diphenhydrAMINE 50 MG CAP PO PRN (12:47)
[2024-05-04] MEDS ORDERED: diphenhydrAMINE 25 MG CAP PO PRN (12:47)
[2024-05-04] MEDS ORDERED: ZOLPIDEM 5 MG TAB PO PRN (12:47)
[2024-05-04] MEDS ORDERED: LANOLIN CREAM 1 GM TUBE TOPICAL PRN (12:47)
--- NOTE | 2024-05-04 12:53 | P.PROBDLV ---
Vaginal Delivery Note - . Vaginal Delivery Note: 33-year-old G2, P1 at 40-0/7 weeks presents for induction of labor. Patient was admitted and Pitocin induction of labor was begun. Patient underwent amniotomy and clear fluid was obtained. Patient progressed through labor becoming uncomfortable and requesting epidural. Soon after epidural was placed patient was noted to be completely dilated. Patient began pushing and had a normal spontaneous vaginal delivery of a viable female infant at 1234, Apgars of 9 and 9 at 1 and 5 minutes respectively. Weight is pending. After 2-minute delay the umbilical cord was doubly clamped and cut placenta was delivered spontaneously intact with a three-vessel cord being noted. On inspection the patient's vaginal vault a secondary midline laceration is appreciated. This laceration is injected with lidocaine and repaired in the usual fashion with 3-0 Rapide. After closure hemostasis is noted. Uterus is noted be firm below the umbilicus. Bladder was drained for approximately 150 cc of clear yellow urine. Spontaneous cry was noted at Counts were noted correct x 2. Patient and tolerated delivery well and are resting comfortably.
[2024-05-04] MEDS: IBUPROFEN 800 MG TAB PO SCH (13:00)
[2024-05-04] MEDS: SENNOSIDES-DOCUSATE SODIUM 1 EACH TAB PO SCH (21:26)
[2024-05-05] MEDS: LEVOTHYROXINE 50 MCG TAB PO SCH (06:08)
[2024-05-05 08:02] VITALS: BP 132/74; PULSE 61; TEMP 98.1
[2024-05-05] MEDS: ACETAMINOPHEN TAB 500 MG TAB PO SCH (08:38)
[2024-05-05] MEDS: PRENATAL VIT-IRON-FOLIC ACID 1 EACH TABLET PO SCH (08:42)
--- NOTE | 2024-05-05 13:59 | P.HPOB ---
History of Present Illness H&P Date: 05/04/24 Chief Complaint: BP at 40-0/7 weeks This is a 33-year-old at 40-0/7 weeks that presents for induction of labor. Patient has been receiving routine care which has been essentially uncomplicated. Patient notes good movement denies vaginal bleeding loss of fluid or contractions. Review of Systems Constitutional: Denies chills, Denies fatigue, Denies fever Ears, nose, mouth and throat: Denies headache Cardiovascular: Denies leg edema Respiratory: Denies dyspnea Gastrointestinal: Denies constipation, Denies diarrhea, Denies nausea, Denies vomiting Genitourinary: Reports Past Medical History Past Medical History: No Reported History Additional Past Medical History / Comment(s): UMBILICAL HERNIA, Pre-eclampsia with first , hypothyroidism History of Any Multi-Drug Resistant Organisms: None Reported Past Surgical History: Hernia Repair Past Anesthesia/Blood Transfusion Reactions: No Reported Reaction Past Psychological History: No Psychological Hx Reported Smoking Status: Never smoker Past Alcohol Use History: Occasional Past Drug Use History: None Reported - Past Family History Father Family Medical History: No Reported History Medications and Allergies Home Medications Medication Instructions Recorded Confirmed Type Aspirin [Adult Low Dose Aspirin EC] 81 mg PO DAILY 05/04/24 05/04/24 History Levothyroxine Sodium [Synthroid] 50 mcg PO DAILY 05/04/24 05/04/24 History Vit No.179/Iron/Folic 1 each PO 05/04/24 History [ Tablet] Allergies Allergy/AdvReac Type Severity Reaction Status Date / Time Sulfa (Sulfonamide Allergy Unknown Verified 01/13/20 15:22 Antibiotics) Childhood Exam Osteopathic Statement: *. No significant issues noted on an osteopathic structural exam other than those noted in the History and Physical/Consult. Vital Signs Temp Pulse Resp BP Pulse Ox 05/04/24 06:07 97.6 F 85 16 148/92 98 Intake and Output 05/03/24 05/04/24 05/04/24 22:59 06:59 14:59 Other: Weight 59.874 kg Targeted physical exam is performed this date General Is well-nourished well- developed female in no acute distress, breathing is nonlabored, heart has a regular and rhythm, abdomen is gravid and appropriate gestational age, on cervical exam she is 4/70/-2 station amniotomy is performed and scant fluid is seen, heart tones noted to be category 1, she is annabel every 4 to 5 minutes. Results Result Diagrams: 05/04/24 06:00 Abnormal Lab Results - Last 24 Hours (Table) 05/04/24 Range/Units 06:00 RBC 3.58 L (3.80-5.40) m/uL Hct 33.9 L (34.0-46.0) % Assessment and Plan (1) Term Current Visit: Yes Status: Acute Code(s): Z34.90 - ENCNTR FOR SUPRVSN OF NORMAL , UNSP, UNSP TRIMESTER SNOMED Code(s): 26775162 Plan: 33-year-old G2, P1 at 40-0/7 weeks presents for induction of labor. Patient is admitted and Pitocin induction of labor is begun. Patient is counseled on options for analgesia. She elects epidural when appropriate. Anticipate spontaneous vaginal delivery.
--- NOTE | 2024-05-05 14:04 | P.DS ---
Providers Date of admission: 05/04/24 05:52 Expected date of discharge: 05/05/24 Attending physician: Lisa Parker Primary care physician: Roz Jansen - Discharge Diagnosis(es) (1) Term Current Visit: Yes Status: Acute (2) Normal vaginal delivery Current Visit: No Status: Acute Hospital Course: 33 yo that presented to the hospital on 05/04 for scheduled induction of labor at 40 0/7 weeks. she has been receiving routine are with myself. care has been essentially uncomplicated. SHe was admitted to labor and delivery and pitocin induction of labor was begun per hospital protocol. She did request epidural for pain control. she had a normal spontaneous vaginal delivery of a viable female . course has been uneventful. on PPD #1 she does desire discharge home she is ambulating and voiding without difficulty, lochia is moderate BF is going well Patient Condition at Discharge: Good Plan - Discharge Summary New Discharge Prescriptions: No Action Vit No.179/Iron/Folic [ Tablet] 1 each PO Levothyroxine Sodium [Synthroid] 50 mcg PO DAILY Aspirin [Adult Low Dose Aspirin EC] 81 mg PO DAILY Discharge Medication List Aspirin [Adult Low Dose Aspirin EC] 81 mg PO DAILY 05/04/24 [History] Levothyroxine Sodium [Synthroid] 50 mcg PO DAILY 05/04/24 [History] Vit No.179/Iron/Folic [ Tablet] 1 each PO 05/04/24 [History] Follow up Appointment(s)/Referral(s): Lisa Parker DO [Doctor of Osteopathic Medicine] - 06/15/24 1:00 pm Patient Instructions/Handouts: Vaginal Delivery (DC), Vaginal Delivery (GEN) Discharge Disposition: HOME SELF-CARE
== END 2024-05-05 15:30 | disposition home or self-care (01) | DRG 807 ==
LOC: 4FBP 05:52
PROVIDERS: ADMIT Obstetrics & Gynecology Obstetrics; ATTEND Obstetrics & Gynecology Obstetrics
PROC: 10E0XZZ Delivery of Products of Conception, External Approach (ICD-10-PCS; principal; 2024-05-04)
PROC: 0KQM0ZZ Repair Perineum Muscle, Open Approach (ICD-10-PCS; 2024-05-04)
PROC: 10907ZC Drainage of Amniotic Fluid, Therapeutic from Products of Conception, Via Natural or Artificial Opening (ICD-10-PCS; 2024-05-04)
PROC: 3E033VJ Introduction of Other Hormone into Peripheral Vein, Percutaneous Approach (ICD-10-PCS; 2024-05-04)
DX: O99.284 Endocrine, nutritional and metabolic diseases complicating childbirth (principal); Z37.0 Single live birth; O70.1 Second degree perineal laceration during delivery; Z3A.40 40 weeks gestation of pregnancy; E03.9 Hypothyroidism, unspecified; Z79.82 Long term (current) use of aspirin; Z79.890 Hormone replacement therapy; Z88.2 Allergy status to sulfonamides; Z87.19 Personal history of other diseases of the digestive system
CPT/HCPCS: 85025; 86850; 86900; 86901